=== PATIENT | male | born 2000 | race Caucasian/White ===

== ENCOUNTER 2021-12-02 17:18 | Emergency (ER) | payer OTHER ==
[~2021-12-02] VITALS: Ht 197 cm; Wt 99.7 kg
[2021-12-02] MEDS ORDERED: FAMOTIDINE 20 MG (PEPCID) TABLET PO ONE (18:45)
[2021-12-02] MEDS ORDERED: DIAZEPAM 5 MG (VALIUM) TABLET PO ONE (19:00)
--- NOTE | 2021-12-02 19:01 | ED Upper Extremity ---
General Chief Complaint: Upper Extremity Stated Complaint: WC, L ARM POST SURGERY PAIN Nursing Triage Note: The patient arrives to the [facility] via private vehicle with c/o left hand pain. He says he had surgery on it earlier in the day at [facility] in [place], and the pain is uncontrolled with prescribed medication. Source: patient History of Present Illness Date Seen by Provider: Dec 02, 2021 Time Seen by Provider: 18:00 Initial Comments Patient is a 21-year-old right-handed male who is several hours postop right hand surgery per Dr. Deidre Herrera who presents with poorly controlled right hand pain. Patient states he was prescribed hydrocodone and took 2 hydrocodone 2 hours prior to ED arrival. His pain is poorly controlled. Patient is wearing splint denies any injury. He denies bleeding through bandage. He is wearing his sling. Patient states he attempted to contact his surgeon prior to coming to the ED. Severity: moderate Pain/Injury Location: right hand Method of Injury: other Modifying Factors: Improves With Other Allergies and Home Medications Allergies Coded Allergies: Penicillins (Verified Allergy, Unknown, 12/02/21) Patient Home Medication List Home Medication List Reviewed: Yes Review of Systems Constitutional: no symptoms reported Musculoskeletal: see HPI Past Jbifhya-Pdnupo-Uxdtwg Hx Patient Social History Tobacco Use?: No Substance use?: No Alcohol Use?: Yes Alcohol Frequency: Couple times a week Immunizations Up To Date First/Initial COVID19 Vaccinat: Received; unknown date Second COVID19 Vaccination Jose: Received; unknown date Past Medical History Surgery/Hospitalization HX: Hand surgery November 2021; Appendectomy 2005 Physical Exam Vital Signs Vital Signs - First Documented 12/02/21 17:27 Pulse 68 Resp 22 B/P (MAP) 146/99 (115) Pulse Ox 98 O2 Delivery Room Air Capillary Refill : Height, Weight, BMI Height: '" Weight: lbs. oz. kg; 25.00 BMI Method: General Appearance: mild distress (Secondary to pain) Hand: Right (Hand splint with bandage and sling. Good distal cap refill) Progress/Results/Core Measures Results/Orders My Orders Orders - WILLIAM RHODES DO Oxycodone Immediate Rel Tablet (Oxyir Ta (12/02/21 18:00) Famotidine Tablet (Pepcid Tablet) (12/02/21 18:45) Diazepam Tablet (Valium Tablet) (12/02/21 19:00) Medications Given in ED Current Medications Medications Dose Ordered Sig/Kevin Route Start Time Stop Time Status Last Admin Dose Admin Famotidine 20 mg ONCE ONCE PO 12/02/21 18:45 12/02/21 18:46 DC 12/02/21 18:47 20 MG Oxycodone HCl 15 mg ONCE ONCE PO 12/02/21 18:00 12/02/21 18:01 DC 12/02/21 17:54 15 MG Vital Signs/I&O 12/02/21 17:27 Pulse 68 Resp 22 B/P (MAP) 146/99 (115) Pulse Ox 98 O2 Delivery Room Air Blood Pressure Mean: 115 Departure Communication (Admissions) Dr. Herrera contacted regarding pain management recommendations. Recommendations are for Celebrex, Valium and continued hydrocodone. Pain improved in the ED. R patient instructed to follow-up with Dr. Herrera for further management. Impression Primary Impression: Postoperative pain Disposition: HOME, SELF-CARE Condition: Stable Departure-Patient Inst. Decision time for Depature: 19:00 Referrals: NO,LOCAL PHYSICIAN (PCP/Family) Primary Care Physician Patient Instructions: Acute Pain, Adult (DC) Add. Discharge Instructions: Please continue hydrocodone and take newly prescribed pain medication as directed. Contact Dr. Herrera's answering service if further questions regarding pain management. All discharge instructions reviewed with patient and/or family. Voiced understanding. Scripts Celecoxib (Celebrex) 200 Mg Capsule 200 MG PO BID, #20 CAP Prov: WILLIAM RHODES DO 12/02/21 Diazepam (Valium) 10 Mg Tablet 10 MG PO Q8H, #21 TAB Prov: WILLIAM RHODES DO 12/02/21 WILLIAM RHODES DO Dec 02, 2021 19:01
[2021-12-02] MEDS ORDERED: DIAZ10TA PO (19:03)
[2021-12-02] MEDS ORDERED: CELE200C PO (19:03)
[2021-12-02 19:10] VITALS: BP 133/64
== END 2021-12-02 19:11 | disposition home or self-care (01) ==
LOC: ER FS 17:21
DX: G89.18 Other acute postprocedural pain (principal); M79.641 Pain in right hand
CPT/HCPCS: 99283